=== PATIENT | female | born 1940 | race Caucasian/White ===

== ENCOUNTER 2021-05-20 12:17 | Emergency (ER) | payer OTHER ==
[~2021-05-20] VITALS: Ht 162.6 cm; Wt 74.8 kg
--- NOTE | ~2021-05-20 | EMS ---
[facility] [address] [place] [address] EMS Patient Care Report Name: Ronit Newman Room #: DEP MILADIS Manzano#: [id number] Admission: 05/20/21 Attend Phys: Discharge: 05/20/21 Date of : 44 Report #: [id number] THIS REPORT FOR: //name// Report Transmitted: 05/23/2021 14:10 EMS Care Summary [place], [place]/[facility] Incident [id number] @ 05/20/2021 11:03 Incident Location [address] [place], [place] [id number] Patient RONIT NEWMAN Female, 81 Years 1940 Patient Address [address] [place], [place] [id number] Patient History Hypertension (HTN),Parkinson's Disease, Patient Allergies Penicillin allergy,Sulfa,Tetracycline,Cipro, Patient Medications Losartan, Carbidopa, Naproxen, Aspirin, Chief Complaint feels like bladder is have spasms Disposition Transported No Lights/[place] [facility] Reason Sick Person Transported To [facility] Narrative patient is found sitting in a chair at the scene. patient says that she has been unable to urinate for about three days. patient also says that her bladder [facility] [address] [place] [address] EMS Patient Care Report Name: Ronit Newman Room #: DEP MILADIS Manzano#: [id number] Admission: 05/20/21 Attend Phys: Discharge: 05/20/21 Date of : 44 Report #: [id number] is having spasms and she is having cramps. patient denies injury or trauma. patient has no other complaints. patient has no obvious injuries that can be seen. patient remains alert during transport. Initial Vitals @12:01P: 87,R: 16,BP: 149/83,Pain: 0/10,GCS: 15,CO: 1,SpO2: 91,Revised Trauma: 12, @11:51P: 94,R: 16,BP: 152/78,Pain: 0/10,GCS: 15,Glucose: 126,Revised Trauma: 12, Assessments @11:41MENTAL:No Abnormalities,SKIN:No Abnormalities,HEENT:Head/Face: No Abnormalities,Eyes: No Abnormalities,Neck/Airway: No Abnormalities,LUNG SOUNDS:General: No Abnormalities,Left Upper: No Abnormalities,Right Upper: No Abnormalities,Left Lower: No Abnormalities,Right Lower: No Abnormalities,ABDOMEN:General: No Abnormalities,Left Upper: No Abnormalities,Right Upper: No Abnormalities,Left Lower: No Abnormalities,Right Lower: No Abnormalities,PELVIS//GI:No Abnormalities,EXTREMITIES:Left Arm: No Abnormalities,Right Arm: No Abnormalities,Left Leg: No Abnormalities,Right Leg: No Abnormalities,PULSE:NEURO:No Abnormalities, Impression Abdominal Pain Procedures @11:54 General Comments Response: Unchanged @11:41 ALS Assessment Response: UnchangedSucceeded @11:48 Stretcher Response: Unchanged Timeline 11:01,Call Received 11:01,Dispatch Notified 11:03,Dispatched 11:05,En Route 11:37,On Scene 11:41,At Patient 11:41,ALS Assessment,Response: UnchangedSucceeded, 11:48,Stretcher,Response: Unchanged 11:51,BP: 152/78 M,PULSE: 94,RR: 16 R,SPO2: Ox,ETCO2: ,B,PAIN: 0,GCS: 15, 11:54,General Comments,Response: Unchanged 11:59,Depart Scene 12:01,BP: 149/83 M,PULSE: 87,RR: 16 R,SPO2: 91 Ox,ETCO2: ,BG: ,PAIN: 0,GCS: 15, 12:10,At Destination 12:27,Call Closed [address] [address] EMS Patient Care Report Name: Ronit Newman Room #: DEP Jose Juan#: [id number] Admission: 05/20/21 Attend Phys: Discharge: 05/20/21 Date of : 44 Report #: [id number] Disclaimer v1.1 Copyright 2020 [employer] This EMS Care Summary contains data elements from the applicable legal record (which may be displayed differently). It is designed to provide pertinent information for the following purposes: continuity of care, clinical quality, and state data reporting. The complete legal record is available to ED staff and administrators of the receiving hospital in [facility]'s Patient Tracker. All data is provided "as is."
[2021-05-20 13:17] LABS: URINE BILIRUBIN NEGATIVE (Negative); URINE BLOOD 2+ (Negative); URINE CLARITY SL CLOUDY; URINE COLOR YELLOW; URINE GLUCOSE-RANDOM* NEGATIVE (Negative); URINE KETONES NEGATIVE (Negative); URINE NITRITE-REFLEX NEGATIVE (Negative); URINE PROTEIN (DIPSTICK) TRACE (Negative); URINE SPECIFIC GRAVITY 1.015 (1.005-1.035); URINE UROBILINOGEN 0.2 E.U./dl (0.2-1.0)
[2021-05-20 13:23] LABS: URINE LEUKOCYTES-REFLEX 1+ (Negative)
[2021-05-20 13:51] LABS: SQUAMOUS >10 Many /LPF (0-3)
[2021-05-20 13:52] LABS: BACTERIA-REFLEX 1-9 Few /HPF (None Seen); CASTS None Seen /LPF (None Seen); CRYSTALS None Seen /LPF (None Seen); URINE RBC 1-2 Rare /HPF (NONE SEEN); URINE WBC-REFLEX 6-15 Few /HPF (0-5)
[2021-05-20] MEDS ORDERED: MACROBID 100 M100 M1 PO (14:02)
[2021-05-20 14:45] VITALS: BP 132/71
== END 2021-05-20 14:46 | disposition home or self-care (01) ==
LOC: ER 12:17
PROVIDERS: Student in an Organized Health Care Education/Training Program
DX: N32.89 Other specified disorders of bladder (principal); R30.0 Dysuria; M62.831 Muscle spasm of calf; N39.0 Urinary tract infection, site not specified; G20 Parkinson's disease; Z85.51 Personal history of malignant neoplasm of bladder; Z88.1 Allergy status to other antibiotic agents; Z88.5 Allergy status to narcotic agent; Z88.0 Allergy status to penicillin; Z88.2 Allergy status to sulfonamides; Z88.7 Allergy status to serum and vaccine; Z88.8 Allergy status to other drugs, medicaments and biological substances; Z88.6 Allergy status to analgesic agent; Z88.4 Allergy status to anesthetic agent; Z91.041 Radiographic dye allergy status